=== PATIENT | female | born 1980 | race Caucasian/White ===

== ENCOUNTER 2017-06-12 23:40 | Emergency (ER) | payer BC ==
[~2017-06-12 23:40] MED LIST: ALBU17AE3 IH; HYDR-229 PO; OXYC-190 PO
== END 2017-06-13 00:45 | disposition left against medical advice (07) ==
LOC: EDUNIT# 23:40 → ER 23:45
DX: R10.30 Lower abdominal pain, unspecified (principal)

== ENCOUNTER 2019-07-07 23:54 | Emergency (ER) | payer BC ==
[~2019-07-07] VITALS: Ht 165.1 cm; Wt 68.0 kg
[2019-07-08] MEDS ORDERED: KETOROLAC 30 MG/ML VIAL IVP ONE (00:30)
[2019-07-08] MEDS ORDERED: NS IV 1000 ML 1,000 ML IV SCH (00:30)
[2019-07-08] MEDS ORDERED: ONDANSETRON 4 MG/2 ML (SDV) Z0FRAN IVP ONE (00:30)
[2019-07-08 00:41] LABS: BASOPHILS % (AUTO) 1 % (0-10); EOSINOPHILS % (AUTO) 14 % (0-10); HEMATOCRIT 40 % (35-52); HEMOGLOBIN 13.7 G/DL (11.5-16.0); LYMPHOCYTES # (AUTO) 3.5 X 10^3 (1.0-4.0); LYMPHOCYTES % (AUTO) 32 % (12-44); MEAN CORPUSCULAR HEMOGLOBIN 31 PG (25-34); MEAN CORPUSCULAR HGB CONC 35 G/DL (32-36); MEAN CORPUSCULAR VOLUME 90 FL (80-99); MEAN PLATELET VOLUME 9.7 FL (7.4-10.4); MONOCYTES # (AUTO) 0.6 X 10^3 (0.0-1.0); MONOCYTES % (AUTO) 5 % (0-12); NEUTROPHILS # (AUTO) 5.2 X 10^3 (1.8-7.8); NEUTROPHILS % (AUTO) 48 % (42-75); PLATELET COUNT 266 10^3/uL (130-400); RED CELL DISTRIBUTION WIDTH 12.2 % (10.0-14.5)
[2019-07-08 00:42] LABS: BASOPHILS # (AUTO) 0.1 10^3/uL (0.0-0.1); EOSINOPHILS # (AUTO) 1.5 10^3/uL (0.0-0.3)
[2019-07-08 00:56] LABS: ALANINE AMINOTRANSFERASE 16 U/L (0-55); ALKALINE PHOSPHATASE 77 U/L (40-136); BILIRUBIN,TOTAL < 0.2 MG/DL (0.1-1.0); BUN/CREATININE RATIO 13; CALCIUM 9.6 MG/DL (8.5-10.1); CARBON DIOXIDE 27 MMOL/L (21-32); CHLORIDE 98 MMOL/L (98-107); CREATININE SERUM 0.67 MG/DL (0.60-1.30); GFR ESTIMATED > 60; GLUCOSE 97 MG/DL (70-105); POTASSIUM 3.9 MMOL/L (3.6-5.0); SODIUM 139 MMOL/L (135-145)
[2019-07-08 00:57] LABS: ALBUMIN 4.2 GM/DL (3.2-4.5); BAND NEUTROPHILS 1 %; LIPASE 32 U/L (8-78); NEUTROPHILS % (MANUAL) 48 %; TOTAL PROTEIN 6.6 GM/DL (6.4-8.2)
[2019-07-08 00:58] LABS: ATYPICAL LYMPHOCYTES 5 %; EOSINOPHILS % (MANUAL) 18 %; LYMPHOCYTES % (MANUAL) 28 %
[2019-07-08 01:01] LABS: CLARITY,URINE CLEAR; COLOR,URINE YELLOW
[2019-07-08 01:02] LABS: BILIRUBIN,URINE NEGATIVE (NEGATIVE); GLUCOSE, URINE (UA) NEGATIVE (NEGATIVE); KETONES,URINE NEGATIVE (NEGATIVE); LEUKOCYTE ESTERASE ,URINE NEGATIVE (NEGATIVE); NITRITE,URINE NEGATIVE (NEGATIVE); PROTEIN,URINE NEGATIVE (NEGATIVE); UROBILINOGEN,URINE 0.2 MG/DL (NORMAL)
[2019-07-08 01:08] LABS: BACTERIA,URINE TRACE /HPF
[2019-07-08] MEDS ORDERED: fentaNYL INJECTION 100 MCG/2 ML AMP IVP STA (01:21)
[2019-07-08] MEDS ORDERED: IOHEXOL 350 MG/ML 100 ML (OMNIPAQUE 350) VIAL IV ONE (01:30)
[2019-07-08] MEDS ORDERED: HOLD METFORMIN - RECEIVED CONTRAST 20 ML VIAL IV SCH (01:30)
[2019-07-08] MEDS ORDERED: NS 100 ML (IVPB) BAG IV ONE (01:30)
--- NOTE | 2019-07-08 01:34 | ED Abdominal Pain ---
General Chief Complaint: Abdominal/GI Problems Stated Complaint: LOWER RIGHT SIDE ABD PAIN Nursing Triage Note: PT AMBULATE TO ROOM FS06 WITHOUT DIFFICULTY. PT STATES SHE HAS HAD ABDOMINAL PAIN FOR ONE WEEK BUT IT IS WORSE TODAY. PT STATES SHE HAS NOT CONTACTED HER PCP BUT SHE WAS PLANNING ON DOING SO TOMORROW. PT STATES PAIN IS JUST UNBEARABLE AND HAD TO COME TO THE ED TONIGHT. Sepsis Screen: No Definite Risk Source of Information: Patient History of Present Illness Date Seen by Provider: Jul 08, 2019 Time Seen by Provider: 00:46 Initial Comments 38-year-old female presenting with complaints of abdominal pain 1 week. She states that she's been having pain in the left upper quadrant all week long. She had planned to try and call her doctor tomorrow but tonight she started having pain in the right lower quadrant and decided that she needed to come in and be evaluated for that. She was concerned about possible appendicitis due to the pain in the right lower quadrant. She has tried some ibuprofen for her pain. For the left upper quadrant abdominal pain she had tried some acid reducing medicine during the week as well. She denies any fever or chills. She has had no diarrhea during the week. She has had prior surgery on her belly with her gallbladder and with hysterectomy and surgery for endometriosis. Allergies and Home Medications Allergies Coded Allergies: acetaminophen (Unverified Allergy, Unknown, RASH, 07/08/19) oxycodone (Unverified Allergy, Unknown, RASH, 07/08/19) Penicillins (Unverified Adverse Reaction, Intermediate, RASH, DYSPNEA, 07/18/12) Home Medications Albuterol 17 Gm Inh, 2 PUFF IH Q4HR PRN, (Reported) Dicyclomine HCl 20 Mg Tablet, 20 MG PO Q6H PRN for ABDOMINAL PAIN Prescribed by: ELVIS REYES on 07/08/19248 Hydrocodone Bit/Acetaminophen 1 Each Tablet, 1 TAB PO Q4HR PRN, (Reported) Hydrocodone Bit/Acetaminophen 1 Tab Tab, 1 EACH PO Q6H PRN for PAIN-MODERATE Prescribed by: ELVIS REYES on 07/08/19248 Naproxen 500 Mg Tablet.dr, 500 MG PO BID Prescribed by: ELVIS VEGART on 07/08/19248 Oxycodone Hcl/Acetaminophen 1 Each Tablet, 1 EACH PO Q 4 - 6 HRS PRN Prescribed by: SAULO MICHAELS on 07/19/12 0253 Patient Home Medication List Home Medication List Reviewed: Yes Review of Systems Review of Systems Constitutional: No chills, No fever EENTM: No Symptoms Reported Respiratory: No Symptoms Reported Cardiovascular: No Symptoms Reported Gastrointestinal: See HPI, Abdominal Pain (LUQ this last week, worse after eating. RLQ pain tonight); Denies Blood Streaked Stools, Denies Constipated, Denies Diarrhea; Nausea (just tonight); Denies Rectal Bleeding, Denies Vomiting Genitourinary: Denies Burning, Denies Discharge, Denies Frequency, Denies Flank Pain, Denies Hematuria Musculoskeletal: no symptoms reported Skin: no symptoms reported Psychiatric/Neurological: No Symptoms Reported Past Nsfopos-Qfrotl-Aejory Hx Past Med/Social Hx: Reviewed Nursing Past Med/Soc Hx Patient Social History Alcohol Use: Occasionally Uses Alcohol Beverage of Choice: Beer Recreational Drug Use: No Smoking Status: Current Everyday Smoker Type Used: Cigars 2nd Hand Smoke Exposure: Yes Recent Foreign Travel: No Contact w/Someone Who Travel: No Recent Infectious Disease Expo: No Recent Hopitalizations: No Physical Abuse: No Sexual Abuse: No Mistreated: No Fear: No Seasonal Allergies Seasonal Allergies: Yes Past Medical History Surgeries: Yes (BREAST AUGMENTATION, TUMMY TUCK) Gallbladder, Hysterectomy Respiratory: Yes Asthma Cardiac: No Neurological: No Female Reproductive Disorders: Endometriosis MANAGER TRAINING History: Hysterectomy Sexually Transmitted Disease: No Genitourinary: No Gastrointestinal: Yes Gall Bladder Disease Musculoskeletal: Yes (ARTHRITIS IN THE ELBOW FROM TYPING FOR SO MANY YEARS) Arthritis Endocrine: Yes Hypothyroidsim HEENT: No Cancer: No Psychosocial: No Integumentary: No Blood Disorders: No Physical Exam Vital Signs Vital Signs - First Documented 07/08/19 00:06 Temp 97.0 Pulse 88 Resp 16 B/P (MAP) 120/80 (93) Pulse Ox 99 O2 Delivery Room Air Capillary Refill : Less Than 3 Seconds Height/Weight/BMI Height: 5'5.00" Weight: 150lbs. oz. 68.151335jq; BMI Method:Stated General Appearance: WD/WN, no apparent distress HEENT: normal ENT inspection, pharynx normal Neck: non-tender, full range of motion, supple, normal inspection Respiratory: chest non-tender, lungs clear, normal breath sounds, no respiratory distress, no accessory muscle use Cardiovascular: normal peripheral pulses, regular rate, rhythm, no edema, no murmur Gastrointestinal: normal bowel sounds, soft, no pulsatile mass, tenderness (RLQ abdomen with guarding. no rebound tenderness) Extremities: normal range of motion, non-tender, normal inspection, no pedal edema, no calf tenderness Neurologic/Psychiatric: alert, normal mood/affect, oriented x 3 Skin: normal color, warm/dry Progress/Results/Core Measures Results/Orders Lab Results Laboratory Tests Test 07/08/19 00:27 07/08/19 00:28 Range/Units Urine Color YELLOW Urine Clarity CLEAR Urine pH 6.0 5-9 Urine Specific [place] 1.015 L 1.016-1.022 Urine Protein NEGATIVE NEGATIVE Urine Glucose (UA) NEGATIVE NEGATIVE Urine Ketones NEGATIVE NEGATIVE Urine Nitrite NEGATIVE NEGATIVE Urine Bilirubin NEGATIVE NEGATIVE Urine Urobilinogen 0.2 NORMAL MG/DL Urine Leukocyte Esterase NEGATIVE NEGATIVE Urine RBC (Auto) TRACE-I NEGATIVE Urine RBC NONE /HPF Urine WBC NONE /HPF Urine Squamous Epithelial Cells 10-25 H /HPF Urine Crystals NONE /LPF Urine Bacteria TRACE /HPF Urine Casts NONE /LPF Urine Mucus NEGATIVE /LPF Urine Culture Indicated NO White Blood Count 11.0 4.3-11.0 10^3/uL Red Blood Count 4.39 4.35-5.85 10^6/uL Hemoglobin 13.7 11.5-16.0 G/DL Hematocrit 40 35-52 % Mean Corpuscular Volume 90 80-99 FL Mean Corpuscular Hemoglobin 31 25-34 PG Mean Corpuscular Hemoglobin Concent 35 32-36 G/DL Red Cell Distribution Width 12.2 10.0-14.5 % Platelet Count 266 130-400 10^3/uL Mean Platelet Volume 9.7 7.4-10.4 FL Neutrophils (%) (Auto) 48 42-75 % Lymphocytes (%) (Auto) 32 12-44 % Monocytes (%) (Auto) 5 0-12 % Eosinophils (%) (Auto) 14 H 0-10 % Basophils (%) (Auto) 1 0-10 % Neutrophils # (Auto) 5.2 1.8-7.8 X 10^3 Lymphocytes # (Auto) 3.5 1.0-4.0 X 10^3 Monocytes # (Auto) 0.6 0.0-1.0 X 10^3 Eosinophils # (Auto) 1.5 H 0.0-0.3 10^3/uL Basophils # (Auto) 0.1 0.0-0.1 10^3/uL Neutrophils % (Manual) 48 % Lymphocytes % (Manual) 28 % Eosinophils % (Manual) 18 % Band Neutrophils 1 % Atypical Lymphocytes 5 % Sodium Level 139 135-145 MMOL/L Potassium Level 3.9 3.6-5.0 MMOL/L Chloride Level 98 98-107 MMOL/L Carbon Dioxide Level 27 21-32 MMOL/L Anion Gap 14 5-14 MMOL/L Blood Urea Nitrogen 9 7-18 MG/DL Creatinine 0.67 0.60-1.30 MG/DL Estimat Glomerular Filtration Rate > 60 BUN/Creatinine Ratio 13 Glucose Level 97 70-105 MG/DL Calcium Level 9.6 8.5-10.1 MG/DL Corrected Calcium 9.4 8.5-10.1 MG/DL Total Bilirubin < 0.2 0.1-1.0 MG/DL Aspartate Amino Transf (AST/SGOT) 18 5-34 U/L Alanine Aminotransferase (ALT/SGPT) 16 0-55 U/L Alkaline Phosphatase 77 40-136 U/L Total Protein 6.6 6.4-8.2 GM/DL Albumin 4.2 3.2-4.5 GM/DL Lipase 32 8-78 U/L My Orders Orders - ELVIS REYES MD Comprehensive Metabolic Panel (07/08/19 00:27) Cbc With Automated Diff (07/08/19 00:27) Lipase (07/08/19 00:27) Ua Culture If Indicated (07/08/19 00:27) Iv Heplock-Insert (Order) (07/08/19 00:27) Ondansetron Injection (Zofran Injectio (07/08/19 00:30) Ketorolac Injection (Toradol Injection) (07/08/19 00:30) Ed Iv/Invasive Line Start (07/08/19 00:28) Ns Iv 1000 Ml (Sodium Chloride 0.9%) (07/08/19 00:30) Manual Differential (07/08/19 00:28) Fentanyl Injection (Sublimaze Injection (07/08/19 01:21) Ct Abdomen/Pelvis W (07/08/19 01:23) Iohexol Injection (Omnipaque 350 Mg/Ml 1 (07/08/19 01:30) Di Iv Start (Assessment) .IV start (07/08/19 01:23) Received Contrast (Hold Metformin- Contr (07/08/19 01:30) Ns (Ivpb) (Sodium Chloride 0.9% Ivpb Bag (07/08/19 01:30) Rx-Hydrocodone/Apap 5-325 Mg (Rx-Vicodin (07/08/19 03:30) Rx-Ondansetron Po (Rx-Zofran Po) (07/08/19 03:30) Medications Given in ED Current Medications Medications Dose Ordered Sig/Thor Route Start Time Stop Time Status Last Admin Dose Admin Iohexol 100 ml ONCE ONCE IV 07/08/19 01:30 07/08/19 01:31 DC 07/08/19 01:34 100 ML Ketorolac Tromethamine 30 mg ONCE ONCE IVP 07/08/19 00:30 07/08/19 00:31 DC 07/08/19 00:38 30 MG Ondansetron HCl 4 mg ONCE ONCE IVP 07/08/19 00:30 07/08/19 00:31 DC 07/08/19 00:38 4 MG Sodium Chloride 100 ml ONCE ONCE IV 07/08/19 01:30 07/08/19 01:31 DC 07/08/19 01:34 100 ML Vital Signs/I&O 07/08/19 00:06 Temp 97.0 Pulse 88 Resp 16 B/P (MAP) 120/80 (93) Pulse Ox 99 O2 Delivery Room Air Blood Pressure Mean: 93 Progress Progress Note #1: Progress Note orders given to the nurses to obtain labs and urine, give toradol for pain and zofran for nausea and IVF for hydration, while I was finishing a procedure on another patient. When I finished the procedure the patient reports her pain was improved down to 5 or 6 out of 10. It was reportedly 10 out of 10 when she arrived to the ED. Her labs show normal CBC and Chemistry with negative lipase and LFTs. Her urine is also clear other than showing a few epithelial cells to show it is a contaminated specimen. will try a dose of fentanyl for pain and check a CT scan of her abdomen/pelvis to evaluate for other sources of her pain and symptoms. Progress Note #2: Progress Note UA was also clear of any acute significant explanation for her pain and symptoms. Give Fentanyl for her pain and obtain CT scan to evaluate her pain. CT shows mild inflammation in ileum and right hemicolon for possible enterocolitis. Also she has a right adnexal cyst measuring 4.6 cm. Will discharge to home and have her check with clinic about ultrasound for her ovarian cyst and possible colonoscopy for her enterocolitis. In the meantime will have her take bentyl for pain and if she can tolerate it Hydrocodone for severe pain. Diagnostic Imaging Diagonstic Imaging: CT Plain Films/CT/US/NM/MRI: abdomen, pelvis Comments Impression: 1. Mild mucosal hyperemia within the ileum and right hemicolon which may be incidental and physiologic however mild enterocolitis could cause a similar appearance in the appropriate clinical setting. Asked 2. Moderate stool card and throughout the colon. 3. Cholecystectomy. 4. Incompletely characterized right adnexal cyst measuring 4.6 cm. Read by radiologist Amando Aranda M.D. at 0159 AM and faxed at 0215 AM. Reviewed: [facility] Imp[facility] Primary Impression: Colitis Additional Impression: Ovarian cyst Qualified Codes: N83.201 - Unspecified ovarian cyst, right side Disposition: HOME, SELF-CARE Condition: Stable Departure-Patient Inst. Decision time for Depature: 02:43 Referrals: KIESHA BARNEY (PCP/Family) Primary Care Physician Patient Instructions: Colitis (DC), Ovarian Cyst (DC) Add. Discharge Instructions: Check with clinic about possible colonoscopy for your colitis and possible ultrasound for the ovarian cyst. Try the Bentyl (Dicyclomine) for pain Naproxen for inflammation and pain. Hydrocodone for severe pain. Stay well hydrated and follow a low fat bland diet. All discharge instructions reviewed with patient and/or family. Voiced understanding. Scripts Naproxen (EC-Naproxen) 500 Mg Tablet. 500 MG PO BID for 10 Days, #20 TAB 0 Refills Prov: ELVIS REYES MD 07/08/19 Hydrocodone Bit/Acetaminophen (Hydrocodone/Acetaminophen 5/325mg Tablet) 1 Tab Tab 1 EACH PO Q6H PRN for PAIN-MODERATE MDD 10 for 3 Days, #12 TAB 0 Refills Prov: ELVIS REYES MD 07/08/19 Dicyclomine HCl (Dicyclomine HCl) 20 Mg Tablet 20 MG PO Q6H PRN for ABDOMINAL PAIN for 7 Days, #30 TAB 0 Refills Prov: ELVIS REYES MD 07/08/19 ELVIS REYES MD Jul 08, 2019 01:34
[2019-07-08] MEDS ORDERED: DICY20TA10 PO (02:49)
[2019-07-08] MEDS ORDERED: ACHD5005 PO (02:49)
[2019-07-08] MEDS ORDERED: NAPR-1211 PO (02:49)
[2019-07-08] MEDS ORDERED: RX-HYDROCODONE/APAP 5/325 MG #4 TAB PK PO PRN (03:30)
[2019-07-08] MEDS ORDERED: RX-ONDANSETRON 4 MG ODT (ZOFRAN) PPK #4 PO PRN (03:30)
[2019-07-08 03:35] VITALS: BP 114/79
--- NOTE | 2019-07-08 06:42 | Diagnostic Imaging Report ---
PROCEDURE: CT abdomen and pelvis with contrast. TECHNIQUE: Multiple contiguous axial images were obtained through the abdomen and pelvis after administration of intravenous contrast. Auto Exposure Controls were utilized during the CT exam to meet ALARA standards for radiation dose reduction. INDICATION: Abdominal pain. COMPARISON: 07/19/2012. FINDINGS: There is a large right ovarian cyst 5 cm. Its internal composition is somewhat heterogeneous and this may be complicated by cystic hemorrhage. Given its size and complexity, further characterization with ultrasound recommended. Left adnexa contains a small 1.9 cm simple appearing cyst. There is an elevated colonic fecal load throughout the large bowel without focal impaction or obstruction. Small bowel is unobstructed. No perienteric or pericolonic edema. There is no hydroureteronephrosis. The gallbladder is surgically absent. There is no pathological distention of the biliary ducts. The stomach is distended with ingested material. Spleen, adrenals and pancreas negative. The aortoiliac and mesenteric vessels patent and nonaneurysmal. IMPRESSION: Large at least partially complex right adnexal cyst correlate ultrasound recommended. Normal appendix with a colonic constipation without focal impaction or obstruction. Dictated by: Dictated on workstation # [id number]
[2019-07-09] MEDS ORDERED: NAPR-1211 PO (17:57)
== END 2019-07-08 03:34 | disposition home or self-care (01) ==
LOC: EDUNIT# 23:54 → ER FS 23:56
DX: K52.9 Noninfective gastroenteritis and colitis, unspecified (principal); N83.201 Unspecified ovarian cyst, right side; J45.909 Unspecified asthma, uncomplicated; E03.9 Hypothyroidism, unspecified; M19.029 Primary osteoarthritis, unspecified elbow; F17.290 Nicotine dependence, other tobacco product, uncomplicated; Z90.710 Acquired absence of both cervix and uterus; Z88.5 Allergy status to narcotic agent; Z88.0 Allergy status to penicillin
CPT/HCPCS: 36415; 74177; 80053; 81000; 83690; 85007; 85027; 96361; 96374; 96375

== ENCOUNTER 2019-07-09 14:32 | Emergency (ER) | payer BC ==
[~2019-07-09] VITALS: Ht 165.1 cm; Wt 71.4 kg
[~2019-07-09 14:32] MED LIST changes: +ACHD5005 PO; +DICY20TA10 PO; +NAPR-1211 PO
[2019-07-09] MEDS ORDERED: HOLD METFORMIN - RECEIVED CONTRAST 20 ML VIAL IV SCH (15:15)
[2019-07-09] MEDS: fentaNYL INJECTION 100 MCG/2 ML AMP IVP STA (15:17)
[2019-07-09] MEDS: NS IV 1000 ML 1,000 ML IV STA (15:17)
[2019-07-09] MEDS: ONDANSETRON 4 MG/2 ML (SDV) Z0FRAN IVP STA (15:18)
[2019-07-09] MEDS: KETOROLAC 30 MG/ML VIAL IVP STA (15:18)
--- NOTE | 2019-07-09 15:27 | ED Abdominal Pain ---
General Chief Complaint: Abdominal/GI Problems Stated Complaint: ABD PAIN Nursing Triage Note: Patient reports she was seen in the ED here two days ago for abdominal pain, diagnosed with an ovarian cyst and colitits. She states she saw her PCP yesterday and received a prescription for two antibiotics for the colitis, unable to remember the names of the medications. She reports her pain worsened suddenly today around 1230 after eating chicken broth for lunch. She states she took a 10/325 mg hydrocodone, 400 mg of ibprofen, and a dose of bentyl at that time, but has had no relief from her pain. Sepsis Screen: No Definite Risk Source of Information: Patient History of Present Illness Date Seen by Provider: Jul 09, 2019 Time Seen by Provider: 15:27 Initial Comments 38-year-old female presenting with complaints of abdominal pain. She has been having pain off and on over the last week. She was seen on Monday for the same complaint however today she had severe pain in the right flank. This was so severe she felt like she might pass out. She had been seen in the clinic since discharge from the emergency department over the weekend. She is scheduled to follow up with gynecology because of a cyst seen in the right adnexa. She also inflammation of the colon and ileum that she is to follow-up with the clinic to have a colonoscopy done. In the meantime today she had the sudden severe pain and had tried taking the hydrocodone when the pain started. However since the pain however to come on and was so severe she was unable to make it go away. She denies any blood with her urine or pain with urination. She does have hydrocodone from her regular doctor. She again tried taking this but it was not helping. Allergies and Home Medications Allergies Coded Allergies: acetaminophen (Unverified Allergy, Unknown, RASH, 07/08/19) oxycodone (Unverified Allergy, Unknown, RASH, 07/08/19) Penicillins (Unverified Adverse Reaction, Intermediate, RASH, DYSPNEA, 07/18/12) Home Medications Albuterol 17 Gm Inh, 2 PUFF IH Q4HR PRN, (Reported) Dicyclomine HCl 20 Mg Tablet, 20 MG PO Q6H PRN for ABDOMINAL PAIN Prescribed by: ELVIS REYES on 07/08/19 0249 Hydrocodone Bit/Acetaminophen 1 Each Tablet, 1 TAB PO Q4HR PRN, (Reported) Hydrocodone Bit/Acetaminophen 1 Tab Tab, 1 EACH PO Q6H PRN for PAIN-MODERATE Prescribed by: ELVIS REYES on 07/08/19 0249 Naproxen 500 Mg Tablet.dr, 500 MG PO BID Prescribed by: ELVIS REYES on 07/09/19 175 Oxycodone Hcl/Acetaminophen 1 Each Tablet, 1 EACH PO Q 4 - 6 HRS PRN Prescribed by: SAULO MICHALES on 07/19/12 0253 Patient Home Medication List Home Medication List Reviewed: Yes Review of Systems Review of Systems Constitutional: No chills, No fever EENTM: No Blurred Vision, No Double Vision Respiratory: Denies Cough, Denies Orthopnea Cardiovascular: Denies Chest Pain Gastrointestinal: Denies Abdomen Distended; Abdominal Pain; Denies Blood Streaked Stools, Denies Constipated, Denies Diarrhea, Denies Nausea Genitourinary: Denies Burning, Denies Discharge, Denies Drainage, Denies Frequency, Denies Flank Pain, Denies Pain, Denies Urgency Musculoskeletal: no symptoms reported Skin: no symptoms reported Psychiatric/Neurological: No Symptoms Reported Endocrine: No Symptoms Reported Past Dsetuzd-Lcsomc-Enwktq Hx Past Med/Social Hx: Reviewed Nursing Past Med/Soc Hx Patient Social History Alcohol Use: Occasionally Uses Number of Drinks Today: AA Alcohol Beverage of Choice: Beer Recreational Drug Use: No Smoking Status: Current Everyday Smoker Type Used: Cigarettes 2nd Hand Smoke Exposure: Yes Recent Foreign Travel: No Contact w/Someone Who Travel: No Recent Infectious Disease Expo: No Recent Hopitalizations: No Physical Abuse: No Sexual Abuse: No Mistreated: No Fear: No Seasonal Allergies Seasonal Allergies: Yes Past Medical History Surgeries: Yes (BREAST AUGMENTATION, TUMMY TUCK) Gallbladder, Hysterectomy Respiratory: Yes Asthma Cardiac: No Neurological: No Female Reproductive Disorders: Endometriosis [employer] History: Hysterectomy Sexually Transmitted Disease: No Genitourinary: No Gastrointestinal: Yes Gall Bladder Disease Musculoskeletal: Yes (ARTHRITIS IN THE ELBOW FROM TYPING FOR SO MANY YEARS) Arthritis Endocrine: Yes Hypothyroidsim HEENT: No Cancer: No Psychosocial: No Integumentary: No Blood Disorders: No Physical Exam Vital Signs Vital Signs - First Documented 07/09/19 14:41 Temp 36.4 Pulse 70 Resp 22 B/P (MAP) 141/99 (113) Pulse Ox 99 O2 Delivery Room Air Capillary Refill : Less Than 3 Seconds Height/Weight/BMI Height: 5'5.00" Weight: 150lbs. oz. 68.005519ka; 26.00 BMI Method:Stated General Appearance: WD/WN, moderate distress HEENT: PERRL/EOMI, pharynx normal Neck: non-tender, supple Respiratory: chest non-tender, lungs clear, normal breath sounds Cardiovascular: normal peripheral pulses, regular rate, rhythm Gastrointestinal: normal bowel sounds, soft, no pulsatile mass Extremities: normal range of motion, non-tender, no calf tenderness, normal capillary refill Neurologic/Psychiatric: alert, normal mood/affect, oriented x 3 Skin: normal color, warm/dry Progress/Results/Core Measures Results/Orders Lab Results Laboratory Tests Test 07/09/19 14:40 07/09/19 15:15 Range/Units Urine Color YELLOW Urine Clarity CLEAR Urine pH 7.0 5-9 Urine Specific [place] 1.010 L 1.016-1.022 Urine Protein NEGATIVE NEGATIVE Urine Glucose (UA) NEGATIVE NEGATIVE Urine Ketones NEGATIVE NEGATIVE Urine Nitrite NEGATIVE NEGATIVE Urine Bilirubin NEGATIVE NEGATIVE Urine Urobilinogen 0.2 NORMAL MG/DL Urine Leukocyte Esterase NEGATIVE NEGATIVE Urine RBC (Auto) NEGATIVE NEGATIVE Urine RBC RARE /HPF Urine WBC RARE /HPF Urine Squamous Epithelial Cells 2-5 /HPF Urine Crystals NONE /LPF Urine Bacteria TRACE /HPF Urine Casts NONE /LPF Urine Mucus NONE /LPF Urine Culture Indicated NO White Blood Count 6.9 4.3-11.0 10^3/uL Red Blood Count 4.31 L 4.35-5.85 10^6/uL Hemoglobin 13.4 11.5-16.0 G/DL Hematocrit 39 35-52 % Mean Corpuscular Volume 91 80-99 FL Mean Corpuscular Hemoglobin 31 25-34 PG Mean Corpuscular Hemoglobin Concent 34 32-36 G/DL Red Cell Distribution Width 12.1 10.0-14.5 % Platelet Count 222 130-400 10^3/uL Mean Platelet Volume 9.5 7.4-10.4 FL Neutrophils (%) (Auto) 50 42-75 % Lymphocytes (%) (Auto) 30 12-44 % Monocytes (%) (Auto) 6 0-12 % Eosinophils (%) (Auto) 13 H 0-10 % Basophils (%) (Auto) 1 0-10 % Neutrophils # (Auto) 3.4 1.8-7.8 X 10^3 Lymphocytes # (Auto) 2.1 1.0-4.0 X 10^3 Monocytes # (Auto) 0.4 0.0-1.0 X 10^3 Eosinophils # (Auto) 0.9 H 0.0-0.3 10^3/uL Basophils # (Auto) 0.1 0.0-0.1 10^3/uL Neutrophils % (Manual) 48 % Lymphocytes % (Manual) 32 % Monocytes % (Manual) 8 % Eosinophils % (Manual) 12 % Blood Morphology Comment NORMAL Sodium Level 136 135-145 MMOL/L Potassium Level 3.9 3.6-5.0 MMOL/L Chloride Level 99 98-107 MMOL/L Carbon Dioxide Level 26 21-32 MMOL/L Anion Gap 11 5-14 MMOL/L Blood Urea Nitrogen 8 7-18 MG/DL Creatinine 0.70 0.60-1.30 MG/DL Estimat Glomerular Filtration Rate > 60 BUN/Creatinine Ratio 11 Glucose Level 97 70-105 MG/DL Calcium Level 9.0 8.5-10.1 MG/DL Corrected Calcium 9.0 8.5-10.1 MG/DL Total Bilirubin 0.3 0.1-1.0 MG/DL Aspartate Amino Transf (AST/SGOT) 27 5-34 U/L Alanine Aminotransferase (ALT/SGPT) 23 0-55 U/L Alkaline Phosphatase 68 40-136 U/L Total Protein 6.2 L 6.4-8.2 GM/DL Albumin 4.0 3.2-4.5 GM/DL Lipase 23 8-78 U/L My Orders Orders - ELVIS REYES MD Ua Culture If Indicated (07/09/19 14:38) Comprehensive Metabolic Panel (07/09/19 14:52) Lipase (07/09/19 14:52) Ed Iv/Invasive Line Start (07/09/19 14:52) Cbc With Automated Diff (07/09/19 14:52) Ct Abdomen/Pelvis W (07/09/19 14:52) Ns Iv 1000 Ml (Sodium Chloride 0.9%) (07/09/19 14:52) Ondansetron Injection (Zofran Injectio (07/09/19 14:52) Ketorolac Injection (Toradol Injection) (07/09/19 14:52) Fentanyl Injection (Sublimaze Injection (07/09/19 14:52) Iohexol Injection (Omnipaque 350 Mg/Ml 1 (07/09/19 15:15) Received Contrast (Hold Metformin- Contr (07/09/19 15:15) Sodium Chloride Flush (Catheter Flush Sy (07/09/19 15:15) Ns (Ivpb) (Sodium Chloride 0.9% Ivpb Bag (07/09/19 15:15) Manual Differential (07/09/19 15:15) Morphine Injection (Morphine Injection (07/09/19 17:49) Strain Urine (07/09/19 17:49) Medications Given in ED Current Medications Medications Dose Ordered Sig/Thor Route Start Time Stop Time Status Last Admin Dose Admin Iohexol 100 ml ONCE ONCE IV 07/09/19 15:15 07/09/19 15:16 DC 07/09/19 16:02 100 ML Sodium Chloride 10 ml NEEDED PRN IV 07/09/19 15:15 07/09/19 18:09 DC 07/09/19 16:02 10 ML Sodium Chloride 100 ml ONCE ONCE IV 07/09/19 15:15 07/09/19 15:16 DC 07/09/19 16:02 100 ML Vital Signs/I&O 07/09/19 07/09/19 14:41 18:09 Temp 36.4 36.4 Pulse 70 70 Resp 22 22 B/P (MAP) 141/99 (113) 141/99 (113) Pulse Ox 99 99 O2 Delivery Room Air 07/10/19 00:00 Intake Total 1000 ml Balance 1000 ml Blood Pressure Mean: 113 Progress Progress Note #1: Progress Note Recheck labs and CT scan to see if there is been any change since when she was seen overnight Monday. Try IV fluids and repeat pain medication to see if her symptoms can be improved Progress Note #2: Progress Note Labs all appear stable without acute significant abnormality on CBC chemistry are urinalysis. Her pain is improved after treatment in the ED. Her CT scan now shows a 2 mm stone in the right ureter. She has continued adnexal mass on the right and now there is also small mass persists on the left side as well. Discussed with patient option of going to [place] for ultrasound, gynecology, urology care versus trying to control her pain and continue with outpatient treatment. Patient opted to try continuing with outpatient treatment for now. Advised to take the pain medicine on a scheduled basis for the next few days and to check back with the clinic for her continued concerns Diagnostic Imaging Diagonstic Imaging: CT Plain Films/CT/US/NM/MRI: abdomen, pelvis Comments NAME: MYRANDA LOBO [facility] REC#: [id number] PT STATUS: REG ER : 1980 PHYSICIAN: ELVIS REYES MD ADMIT DATE: 07/09/19/ER FS Signed Date of Exam:07/09/19 CT ABDOMEN/PELVIS W PROCEDURE: CT abdomen and pelvis with contrast. TECHNIQUE: Multiple contiguous axial images were obtained through the abdomen and pelvis after administration of intravenous contrast. Auto Exposure Controls were utilized during the CT exam to meet ALARA standards for radiation dose reduction. DATE: July 09, 2019. COMPARISON: CT abdomen and pelvis July 08, 2019. July 19, 2012. INDICATION: 38-year-old female, bilateral lower abdominal pain for 2 days. FINDINGS: There are bilateral breast implants. The visualized portions of the lung bases are clear. The heart is not enlarged. There is no pericardial effusion. The liver is normal in size and contour. There is no identified liver lesion. The main, right, and left portal veins are patent. The patient is status post cholecystectomy. There is no intrahepatic or extrahepatic bile duct dilation. The main pancreatic duct is not abnormally dilated. Unremarkable appearance of the pancreatic parenchyma. The spleen is normal in size. The adrenal glands are unremarkable. Unremarkable appearance of the renal parenchyma. The urinary collecting systems are not abnormally dilated. There is a right-sided pelvic calcification on axial image 74 measuring 2 mm in size. This is very near the expected location of the right ureter. This is not seen separate to the contrast filled right ureter on the delayed urographic phase imaging. This most likely does relate to a 2 mm stone in the right distal ureter. There is no additional identified renal or ureteral stone. The urinary bladder is unremarkable in appearance. The uterus is not seen and may be surgically absent. There is a heterogeneous attenuation mass in the region of the right adnexa measuring 5.1 x 4.7 cm in axial dimension. There is a low-attenuation left adnexal lesion measuring up to maximally 2.4 cm in size. Both are essentially unchanged since the recent comparison CT exam of July 08, 2019. The intestinal tract is not distended. There is no free intraperitoneal air. There is no drainable fluid collection. There is no sizable volume free pelvic fluid. There is a small fat-containing umbilical hernia. There is no identified abnormally enlarged lymph node in the abdomen or pelvis which meets CT size criteria for adenopathy. There are subcentimeter sclerotic foci in the right femoral head and right anterior acetabulum which are unchanged since comparison exam. There are nonspecific but most likely reflect benign bone islands. There are disc degenerative changes at L4-L5 and L5-S1. There is no identified acute bony abnormality. IMPRESSION: CT ABDOMEN AND PELVIS. 1. 2 mm calcification in the right lower quadrant which is suspected to be within the right distal ureter; however, there is no hydronephrosis. Recommend correlation. 2. Redemonstrated bilateral adnexal masses with the right adnexal mass measuring 5.1 x 4.7 cm in size. These are indeterminate in etiology. Malignancy is in the differential diagnosis, especially for the right adnexal mass. Gynecologic consultation is recommended if not already obtained and pelvic ultrasound is recommended for further assessment. Dictated by: Dictated on workstation # [id number] Dict: 07/09/19 1612 Trans: 07/09/19 1703 [facility] [id number] Interpreted by: NORBERT HUERTA MD Electronically signed by: NORBERT HUERTA MD 07/09/191702 Departure Impression Primary Impression: Kidney stone on right side Additional Impressions: Renal colic on right side Adnexal cyst Disposition: 01 HOME, SELF-CARE Condition: Stable Departure-Patient Inst. Decision time for Depature: 17:54 Referrals: KIESHA BARNEY (PCP) Primary Care Physician REYNALDO LIN MD (Family) Primary Care Physician Patient Instructions: Renal Colic (DC), Flank Pain (DC), Kidney Stones (DC), How to Strain Your Urine, Kidney Stone Diet Add. Discharge Instructions: Drink more water and stay well hydrated Follow up with clinic and get ultrasound for your cysts they see in your pelvis and follow up with Gynecology. If the pain worsens and is not controlled with your medicine then seek medical care either here or in [place] to have Gynecology evaluate your cysts and you may need Urology to see you for the kidney stone seen on today's CT scan as well. Take the pain medicine on a scheduled basis for the next 2-3 days to keep the pain controlled. All discharge instructions reviewed with patient and/or family. Voiced understanding. Scripts Naproxen (EC-Naproxen) 500 Mg Tablet. 500 MG PO BID for 10 Days, #20 TAB 0 Refills Prov: ELVIS REYES MD 07/09/19 ELVIS REYES MD Jul 09, 2019 15:27
[2019-07-09 15:51] LABS: BASOPHILS % (AUTO) 1 % (0-10); EOSINOPHILS % (AUTO) 13 % (0-10); HEMATOCRIT 39 % (35-52); HEMOGLOBIN 13.4 G/DL (11.5-16.0); MEAN CORPUSCULAR HEMOGLOBIN 31 PG (25-34); MEAN CORPUSCULAR HGB CONC 34 G/DL (32-36); MEAN CORPUSCULAR VOLUME 91 FL (80-99); MEAN PLATELET VOLUME 9.5 FL (7.4-10.4); MONOCYTES % (AUTO) 6 % (0-12); NEUTROPHILS % (AUTO) 50 % (42-75); PLATELET COUNT 222 10^3/uL (130-400); RED CELL DISTRIBUTION WIDTH 12.1 % (10.0-14.5); WHITE BLOOD COUNT 6.9 10^3/uL (4.3-11.0)
[2019-07-09 15:52] LABS: BASOPHILS # (AUTO) 0.1 10^3/uL (0.0-0.1); EOSINOPHILS # (AUTO) 0.9 10^3/uL (0.0-0.3); LYMPHOCYTES # (AUTO) 2.1 X 10^3 (1.0-4.0); LYMPHOCYTES % (AUTO) 30 % (12-44); MONOCYTES # (AUTO) 0.4 X 10^3 (0.0-1.0); NEUTROPHILS # (AUTO) 3.4 X 10^3 (1.8-7.8)
[2019-07-09 15:53] LABS: ALANINE AMINOTRANSFERASE 23 U/L (0-55); ALKALINE PHOSPHATASE 68 U/L (40-136); BILIRUBIN,TOTAL 0.3 MG/DL (0.1-1.0); BUN/CREATININE RATIO 11; CARBON DIOXIDE 26 MMOL/L (21-32); CHLORIDE 99 MMOL/L (98-107); GFR ESTIMATED > 60; GLUCOSE 97 MG/DL (70-105); LIPASE 23 U/L (8-78); POTASSIUM 3.9 MMOL/L (3.6-5.0); SODIUM 136 MMOL/L (135-145); TOTAL PROTEIN 6.2 GM/DL (6.4-8.2)
[2019-07-09] MEDS: CATHETER FLUSH 10 ML SYR IV PRN (16:02)
[2019-07-09] MEDS: IOHEXOL 350 MG/ML 100 ML (OMNIPAQUE 350) VIAL IV ONE (16:02)
[2019-07-09] MEDS: NS 100 ML (IVPB) BAG IV ONE (16:02)
[2019-07-09 16:06] LABS: BACTERIA,URINE TRACE /HPF; BILIRUBIN,URINE NEGATIVE (NEGATIVE); CLARITY,URINE CLEAR; COLOR,URINE YELLOW; GLUCOSE, URINE (UA) NEGATIVE (NEGATIVE); KETONES,URINE NEGATIVE (NEGATIVE); LEUKOCYTE ESTERASE ,URINE NEGATIVE (NEGATIVE); NITRITE,URINE NEGATIVE (NEGATIVE); PROTEIN,URINE NEGATIVE (NEGATIVE); RBC,URINE RARE /HPF; UROBILINOGEN,URINE 0.2 MG/DL (NORMAL); WBC,URINE RARE /HPF
--- NOTE | 2019-07-09 16:33 | Diagnostic Imaging Report ---
PROCEDURE: CT abdomen and pelvis with contrast. TECHNIQUE: Multiple contiguous axial images were obtained through the abdomen and pelvis after administration of intravenous contrast. Auto Exposure Controls were utilized during the CT exam to meet ALARA standards for radiation dose reduction. DATE: July 09, 2019. COMPARISON: CT abdomen and pelvis July 08, 2019. July 19, 2012. INDICATION: 38-year-old female, bilateral lower abdominal pain for 2 days. FINDINGS: There are bilateral breast implants. The visualized portions of the lung bases are clear. The heart is not enlarged. There is no pericardial effusion. The liver is normal in size and contour. There is no identified liver lesion. The main, right, and left portal veins are patent. The patient is status post cholecystectomy. There is no intrahepatic or extrahepatic bile duct dilation. The main pancreatic duct is not abnormally dilated. Unremarkable appearance of the pancreatic parenchyma. The spleen is normal in size. The adrenal glands are unremarkable. Unremarkable appearance of the renal parenchyma. The urinary collecting systems are not abnormally dilated. There is a right-sided pelvic calcification on axial image 74 measuring 2 mm in size. This is very near the expected location of the right ureter. This is not seen separate to the contrast filled right ureter on the delayed urographic phase imaging. This most likely does relate to a 2 mm stone in the right distal ureter. There is no additional identified renal or ureteral stone. The urinary bladder is unremarkable in appearance. The uterus is not seen and may be surgically absent. There is a heterogeneous attenuation mass in the region of the right adnexa measuring 5.1 x 4.7 cm in axial dimension. There is a low-attenuation left adnexal lesion measuring up to maximally 2.4 cm in size. Both are essentially unchanged since the recent comparison CT exam of July 08, 2019. The intestinal tract is not distended. There is no free intraperitoneal air. There is no drainable fluid collection. There is no sizable volume free pelvic fluid. There is a small fat-containing umbilical hernia. There is no identified abnormally enlarged lymph node in the abdomen or pelvis which meets CT size criteria for adenopathy. There are subcentimeter sclerotic foci in the right femoral head and right anterior acetabulum which are unchanged since comparison exam. There are nonspecific but most likely reflect benign bone islands. There are disc degenerative changes at L4-L5 and L5-S1. There is no identified acute bony abnormality. IMPRESSION: CT ABDOMEN AND PELVIS. 1. 2 mm calcification in the right lower quadrant which is suspected to be within the right distal ureter; however, there is no hydronephrosis. Recommend correlation. 2. Redemonstrated bilateral adnexal masses with the right adnexal mass measuring 5.1 x 4.7 cm in size. These are indeterminate in etiology. Malignancy is in the differential diagnosis, especially for the right adnexal mass. Gynecologic consultation is recommended if not already obtained and pelvic ultrasound is recommended for further assessment. Dictated by: Dictated on workstation # [id number]
[2019-07-09 17:11] LABS: NEUTROPHILS % (MANUAL) 48 %
[2019-07-09 17:12] LABS: EOSINOPHILS % (MANUAL) 12 %; LYMPHOCYTES % (MANUAL) 32 %; MONOCYTES % (MANUAL) 8 %; RBC MORPH NORMAL
[2019-07-09] MEDS ORDERED: NAPR-1211 PO (17:57)
[2019-07-09] MEDS: morphine INJ 10 MG/ML 1ML (SYR OR VIAL) IVP STA (18:07)
[2019-07-09 18:09] VITALS: BP 141/99
== END 2019-07-09 18:08 | disposition home or self-care (01) ==
LOC: EDUNIT# 14:32 → ER FS 14:34
DX: N20.0 Calculus of kidney (principal); N23 Unspecified renal colic; N83.8 Other noninflammatory disorders of ovary, fallopian tube and broad ligament; J45.909 Unspecified asthma, uncomplicated; E03.9 Hypothyroidism, unspecified; F17.210 Nicotine dependence, cigarettes, uncomplicated; Z88.5 Allergy status to narcotic agent; Z88.0 Allergy status to penicillin; Z90.710 Acquired absence of both cervix and uterus
CPT/HCPCS: 36415; 74177; 80053; 81000; 83690; 85007; 85027; 96361; 96374; 96375

== ENCOUNTER → 2021-02-15 | Outpatient (CLI) | payer BC ==
--- NOTE | 2021-02-15 16:07 | Diagnostic Imaging Report ---
INDICATION: Right knee injury. FINDINGS: Three views of the right knee show no fracture, dislocation, or appreciable joint effusion. IMPRESSION: Negative right knee. Dictated by: Dictated on workstation # [id number]
== END ==
LOC: RAD FS 13:53
PROVIDERS: ATTEND Nurse Practitioner
DX: S89.91XA Unspecified injury of right lower leg, initial encounter (principal); X58.XXXA Exposure to other specified factors, initial encounter
CPT/HCPCS: 73562